=== PATIENT | female | born 1950 | race Caucasian/White ===

== ENCOUNTER → 2021-07-18 | Outpatient (CLI) | payer MEDICARE, BC ==
[~2021-07-18] MED LIST: BACTRIM DS 8001 TA1 PO; CALCIUM 600 MG-1 TAB PO; LO-DOSE ASPIRIN81 MG PO; SUPER EPA W/BO400 MG PO; VIBRAMYCIN100 MG PO; ZOLPIDEM TART10 MG PO
== END | disposition home or self-care (01) ==
LOC: RAD 00:29 → MAMMO 08:30
PROVIDERS: ATTEND Nurse Practitioner Women's Health
DX: Z12.31 Encounter for screening mammogram for malignant neoplasm of breast (principal); M81.0 Age-related osteoporosis without current pathological fracture

== ENCOUNTER → 2022-05-22 | Outpatient (CLI) | payer MEDICARE, BC ==
[2022-05-22 08:35] LABS: BUN 17 mg/dl (7-24); CHLORIDE 109 mmol/L (98-107); CHOLESTEROL 188 mg/dL (<200); CREATININE 0.64 mg/dL (0.55-1.02); LDL CHOLESTEROL 95 mg/dL (9-159); SODIUM 140 mmol/L (136-145); TRIGLYCERIDES 69 mg/dl (<150)
== END | disposition home or self-care (01) ==
LOC: LAB 01:53
PROVIDERS: ATTEND Family Medicine
DX: A69.20 Lyme disease, unspecified (principal); Z83.438 Family history of other disorder of lipoprotein metabolism and other lipidemia; Z13.1 Encounter for screening for diabetes mellitus; Z13.220 Encounter for screening for lipoid disorders

== ENCOUNTER 2024-04-13 15:59 | Emergency (ER) | payer MEDICARE, BC ==
[~2024-04-13] VITALS: Ht 170.1 cm; Wt 72.6 kg
[2024-04-13] MEDS ORDERED: SODIUM CHLORIDE 0.9% 1,000 ML IV ONE (17:10)
[2024-04-13] MEDS ORDERED: ACETAMINOPHEN 325 MG TAB PO ONE (17:10)
[2024-04-13 17:37] LABS: BASO % 0.4 % (0.0-1.0); HEMATOCRIT 41.5 % (37.0-47.0); LYMPH # 0.4 10*3/uL (1.3-4.4); LYMPH % 16.4 % (27.0-41.0); MEAN CELL VOLUME 91.2 fl (81.0-99.0); MEAN CORPUSCULAR HGB 30.3 pg (27.0-31.0); MEAN CORPUSCULAR HGB CONC 33.3 g/dl (33.0-37.0); MEAN PLATELET VOLUME 9.3 fl (9.6-12.3); MONO # 0.2 10*3/uL (0.1-1.0); NEUT % 74.8 % (47.0-73.0); PLATELET COUNT AUTOMATED 121 10*3/uL (130-400); RED BLOOD COUNT 4.55 10*6/uL (4.10-5.10); RED CELL DISTRI WIDTH 13.3 % (0-14.5); WHITE BLOOD COUNT 2.6 10*3/uL (4.8-10.8)
[2024-04-13 17:53] LABS: BUN 9 mg/dl (9-23); CHLORIDE 98 mmol/L (98-107); CPK 218 U/L (34-171)
[2024-04-13 18:59] LABS: BILIRUBIN Negative (Negative); BLOOD 1+ (Negative); CLARITY Clear (Clear); COLOR Yellow (Yellow); GLUCOSE Negative (Negative); KETONE 2+ (Negative); LEUKO ESTERASE Negative (Negative); NITRITE Negative (Negative); PH 5.5 (4.5-8.0)
[2024-04-13 19:08] LABS: BACTERIA 1+; MUCOUS 1+; WBC 0-2 wbc/hpf (0-5)
[2024-04-13] MEDS ORDERED: Bacitracin Zinc 14 GM TUBE T ONE (19:40)
== END 2024-04-13 19:57 | disposition home or self-care (01) ==
LOC: ED 15:59
PROVIDERS: Physician Assistant Medical
DX: S00.81XA Abrasion of other part of head, initial encounter (principal); Z20.822 Contact with and (suspected) exposure to COVID-19; S00.31XA Abrasion of nose, initial encounter; D72.819 Decreased white blood cell count, unspecified; R50.9 Fever, unspecified; R55 Syncope and collapse; Z79.82 Long term (current) use of aspirin; Z79.899 Other long term (current) drug therapy; Z98.890 Other specified postprocedural states; W18.39XA Other fall on same level, initial encounter; Y93.89 Activity, other specified; Y92.89 Other specified places as the place of occurrence of the external cause; Y99.8 Other external cause status

== ENCOUNTER → 2024-04-13 | Outpatient (CLI) | payer MEDICARE, BC ==
[2024-04-13 16:31] LABS: BILIRUBIN Negative (Negative); BLOOD 1+ (Negative); CLARITY Clear (Clear); COLOR Yellow (Yellow); GLUCOSE Negative (Negative); KETONE 1+ (Negative); LEUKO ESTERASE Negative (Negative); NITRITE Negative (Negative); PH 5.5 (4.5-8.0)
[2024-04-13 16:40] LABS: BACTERIA TRACE; MUCOUS 1+; WBC 0-2 wbc/hpf (0-5)
== END | disposition home or self-care (01) ==
LOC: LAB 16:23
PROVIDERS: ATTEND Nurse Practitioner Family
DX: S00.83XA Contusion of other part of head, initial encounter (principal); R55 Syncope and collapse; M79.10 Myalgia, unspecified site; R50.9 Fever, unspecified; X58.XXXA Exposure to other specified factors, initial encounter; Y93.89 Activity, other specified; Y92.89 Other specified places as the place of occurrence of the external cause; Y99.8 Other external cause status

== ENCOUNTER → 2024-06-30 | Outpatient (CLI) | payer MEDICARE, BC | END | disposition home or self-care (01) | LOC: MAMMO 03:38 | PROVIDERS: ATTEND Nurse Practitioner Women's Health | DX: Z12.31 Encounter for screening mammogram for malignant neoplasm of breast (principal) ==